=== PATIENT | male | born 1995 ===

== ENCOUNTER 2017-03-02 13:12 | Emergency (ER) | payer OTHER, SELFPAY ==
[2017-03-02 13:35] VITALS: BP 128/76; PULSE 55; RESP 16; TEMP 97.3; O2SAT 100
[2017-03-02] MEDS ORDERED: Naproxen 550 mg Tab PO STA (14:00)
[2017-03-02] MEDS ORDERED: Naproxen 550 mg Tab PO ONE (14:05)
--- NOTE | 2017-03-02 14:46 | C.PDOC ---
History Of Present Illness 21 yr old male presents to the ER for evaluation of right knee pain since last week. Patient reports he was playing soccer last week, when he was kicked to the back of the knee. He has been having pain, particularly with flexion and extension of the leg, since then. Patient able to ambulate normally. He denies other injuries, fever, sensory changes. Time Seen by Provider: 03/02/17 13:22 Chief Complaint (Nursing): Lower Extremity Problem/Injury History Per: Patient History/Exam Limitations: no limitations Onset/Duration Of Symptoms: Persistent (Last week) Current Symptoms Are (Timing): Still Present Severity: Mild Past Medical History Reviewed: Historical Data, Nursing Documentation, Vital Signs Vital Signs: Last Vital Signs Temp 97.3 F L 03/02/17 13:33 Pulse 55 L 03/02/17 13:33 Resp 16 03/02/17 13:33 BP 128/76 03/02/17 13:33 Pulse Ox 100 03/02/17 15:41 - Medical History PMH: No Chronic Diseases Family History: States: No Known Family Hx - Social History Hx Alcohol Use: Yes Hx Substance Use: No - Immunization History Hx Tetanus Toxoid Vaccination: No Hx Influenza Vaccination: No Hx Pneumococcal Vaccination: No Review Of Systems Except As Marked, All Systems Reviewed And Found Negative. Constitutional: Negative for: Fever Musculoskeletal: Positive for: Other ((+) Right knee pain ). Negative for: Back Pain, Leg Pain Neurological: Negative for: Weakness, Numbness Physical Exam - Physical Exam Appears: Well, Non-toxic, No Acute Distress Skin: Warm, Dry, No Rash Oral Mucosa: Moist Cardiovascular: Rhythm Regular Respiratory: Normal Breath Sounds, No Rales, No Rhonchi, No Stridor, No Wheezing Extremity: Normal ROM, No Tenderness, No Calf Tenderness, Capillary Refill (< 2 sec all digits ), No Deformity, No Swelling, Other (Right Knee - Mild crepitus with movement of the patella. No erythema/ swelling. ROM is intact. No warmth to touch. No masses in popliteal area. ) Pulses: Left Dorsalis Pedis: Normal, Right Dorsalis Pedis: Normal Neurological/Psych: Oriented x3, Normal Sensation Gait: Steady ED Course And Treatment O2 Sat by Pulse Oximetry: 100 (RA) Pulse Ox Interpretation: Normal - Other Rad X-Ray - Right Knee X-Ray: Viewed By Me, Read By Radiologist Interpretation: PROCEDURE: Right knee dated 03/02/2017. HISTORY: RIGHT KNEE PAIN AFTER SOCCER INJURY. COMPARISON: None. FINDINGS: BONES: The current study reveals no evidence of acute displaced fracture nor dislocation. The osseous structures appear intact. JOINTS: Joint spaces preserved. . No osteoarthritis. JOINT EFFUSION: No significant joint effusion. OTHER FINDINGS : None. IMPRESSION: Normal radiographs of the right knee. Progress Note: Xray of knee ordered and reviewed. Patient given PO Naprosyn for pain. Xray (-) for acute fractures/dislocations. Bridger wrap applied to affected knee by ED nurse. Patient denies worsening pain with ambulation, and does not want crutches. He was given Rx for Naprosyn, ad was instructed to follow up with orthopedics within 1 week. He understands he should return to ED if symptoms worsen. Reevaluation Time: 15:40 Reassessment Condition: Improved Disposition Counseled Patient/Family Regarding: Diagnosis, Need For Followup, Rx Given - Disposition Referrals: Sandip Combs MD [Staff Provider] - [facility] [Outside] Disposition: HOME/ ROUTINE Disposition Time: 15:40 Condition: STABLE Additional Instructions: FOLLOW UP WI ORTHOPEDICS WITHIN 1 WEEK USE MEDICATION FOR PAIN NEEDED RETURN TO ER IF SYMPTOMS WORSEN Prescriptions: Naproxen [Naprosyn Tab] 375 mg PO BID PRN #20 tab PRN Reason: pain Instructions: Knee Sprain (ED) Print Language: TAMAZIGHT - POA Present On Arrival: Falls Or Trauma - Clinical Impression Clinical Impression: Right knee sprain, Soft tissue injury of knee - Scribe Statement The provider has reviewed the documentation as recorded by the Jay Spencer Provider Attestation: All medical record entries made by the Jay were at my direction and personally dictated by me. I have reviewed the chart and agree that the record accurately reflects my personal performance of the history, physical exam, medical decision making, and the department course for this patient. I have also personally directed, reviewed, and agree with the discharge instructions and disposition.
--- NOTE | 2017-03-02 15:32 | RAD ---
PROCEDURE: Right knee dated 03/02/2017. HISTORY: RIGHT KNEE PAIN AFTER SOCCER INJURY COMPARISON: None. FINDINGS: BONES: The current study reveals no evidence of acute displaced fracture nor dislocation. The osseous structures appear intact. JOINTS: Joint spaces preserved. . No osteoarthritis. JOINT EFFUSION: No significant joint effusion OTHER FINDINGS: None. IMPRESSION: Normal radiographs of the right knee.
== END 2017-03-02 16:10 | disposition home or self-care (01) ==
LOC: C.ER 13:12
DX: S83.91XA Sprain of unspecified site of right knee, initial encounter (principal); W50.0XXA Accidental hit or strike by another person, initial encounter; Y93.66 Activity, soccer; Y92.89 Other specified places as the place of occurrence of the external cause